=== PATIENT | female | born 1990 | race Caucasian/White ===

== ENCOUNTER 2023-10-31 13:07 | Outpatient (CLI) | payer OTHER ==
--- NOTE | 2023-10-31 13:57 | Sleep Patient Instructions ---
Sleep Center Visit Summary - Patient Visit Information Reason for Visit: Initial consult for evaluation of sleep disordered breathing and other sleep issues. - Patient Instructions Instructions Attached: Sleep Study Home Monitor Additional Instructions: You will be completing a sleep study, either an in-lab polysomnography (PSG) or home sleep study (HST). You will follow-up in the sleep care office after the sleep study is completed to hear the results and talk about therapy, if needed. You will be called by our office staff to schedule this appointment, but you may contact us with any questions. - Clinic Information Contact: [facility] [address] [place] [address] [email or web address] T: [phone]
--- NOTE | 2023-10-31 14:00 | SLEEP CARE CONSULTATION ---
Information from patient questionnaire entered by Nenita Damon. I have reviewed and concur with the information entered by Nenita Damon. This document represents the service I personally performed and the decisions made by me, Lakisha Salamanca ARNP. History of Present Illness Service Date and Time: 10/31/2023 1307 Reason for Visit: New patient Chief Complaint: reports: Unrefreshed sleep, Snoring, Other (Too tired on day basis. I need naps to be able to rest a little more)) Date of Onset: More than 2 years Usual bedtime: 10 PM - stay up to 12-1:30 AM Time it takes to fall asleep: 20-30 minutes if I take Melatonin/Amitriptyline Snores at night: Yes Observed to quit breathing while asleep: No Sleeps alone due to snoring: Yes Number of times waking at night: 1-2 Reasons for waking at night: reports: Snoring, Bathroom, Other (Unknown reason, noise, reflux). denies: Choking, Gasping for air Toss, Turn, or Twitch while sleeping: Yes Recalls having dreams: Yes Usually gets out of bed at: [id number]; weekends 10-11 AM Feels refreshed in the morning: No Morning headache: No Sleepy or fatigued during the day: Yes Ever fallen asleep while driving: Yes (drowsy driving; no accidents) Takes day naps: Yes (almost every day, shortest 3 hours, sleeps a lot on days off) Dreams during day naps: Yes Prior sleep studies: No Additional HPI information: I had the pleasure of seeing ORI SWEENEY today regarding the possibility of her having a sleep disorder. Her current complaints are unrefreshed sleep and snoring. She says she is snoring more according to other sleeping in other rooms . Her significant other had to sleep on couch to sleep because of her loud snoring. Her boyfriend has seen her have a pauses in breathing when sleeping. Her snoring is loudest when she is sleeping supine. She is tired and does not wake up feeing refreshed. She says it takes 1-2 hours to go to sleep unless she takes melatonin and amitriptyline for sleep. - Parasomnia Symptoms Ever been unable to move upon waking from sleep: No Walks in sleep: No Talks in sleep: No Ever acted out dreams in sleep: No Ever felt weak in the knees when startled or emotional: Yes (has not fallen to ground) Bothered by creepy, crawly, restless sensations in legs: No Problems with memory or concentration: Yes (mostly concentration) Subjective Initial [place] Sleepiness Scale score: 16 (in 2022) Past Medical History Past Medical History: reports: Hypertension, Hypothyroidism, Anxiety (and panic attacks), Depression, Other (PCOS; migraines) Social History The patient's occupation is a [employer]iance [employer] ([employer] in the [employer]. Patient is and lives in [place]. Have you smoked in the past 12 months: No Alcohol use: No Caffeine use: Yes Caffeine amount and frequency: 1-2 teas, 3-4 times a week Family History Family history of sleep disordered breathing: Yes Family Hx Sleep Apnea: Mother: Snoring, Sleep apnea - Treated, Father: Snoring, Grandparent: Snoring, Sleep apnea - Untreated Allergies and Home Medications Known drug allergies: Yes (Sulfa drugs, Zyrtec, FE component) Drug allergies reviewed: Yes Home medication list reviewed: Yes Allergy and home medication list: Medications: Cytomel 25 mcg daily Sertraline 100 mg 1.5 daily Propranolol 20 mg 2 x day Metformin 500 mg 2 x day Omeprazole 20 mg daily Zenaida 180 mg daily Premarin 0.625 mg Saturday/ Maxalt 10 mg prn migraines Amitriptyline 25 mg 1 at night melatonin prn sleep Review of Systems Weight gain over past 5 years: 60 or more Weight loss over past 5 years: 0 Cardiovascular: reports: high blood pressure Gastrointestinal: reports: heartburn, diarrhea Neurological: reports: headaches Psychiatric: reports: anxiety, depression Ear/Nose/Throat: reports: nasal congestion, dry mouth/throat, wisdom teeth removed. denies: tonsillectomy Endocrine: reports: thyroid disease, sluggishness (/tired), excessive thirst Musculoskeletal: reports: joint swelling, muscle pain or cramping Immunologic: reports: sneezing (/runny nose), rash, itching, allergies to food or environment (food) Physical Exam Vital signs obtained and entered by: Lakisha Milian NP Blood Pressure: 104/58 Cuff size: wrist (right) Heart Rate: 88 O2 Saturation: 97 Height: 5 ft 4 in Weight: 203 lb 3.2 oz Body Mass Index: 34.9 BMI Classification: Obese Neck circumference: 16 (inches) Mouth and throat: narrow oropharynx Soft palate: long Hard palate: Torus palatinus (small) Uvula: normal Uvula visualization: 25% Mallampati Class III Tongue: enlarged in size with teeth irizarry on lateral edges Tonsils: small Neck: normal w/o lymphadenopathy or thyromegaly Heart: regular rate and rhythm Lungs: clear bilaterally Extremities: no edema or clubbing Impression and Plan 1. Suspected Obstructive Sleep Apnea-Hypopnea Syndrome, as suggested by a history of loud and irregular snoring, observed cessation of breath while asleep, unrefreshed sleep, cognitive impairment, and excessive daytime sleepiness. Narrow oropharynx and obesity are common predisposing factors for obstructive sleep apnea-hypopnea syndrome. I recommend proceeding to polysomnography to confirm the diagnosis and to assess severity. If the patient has significant sleep disordered breathing, a manual CPAP titration study will also be performed to find the optimal treatment pressure. I informed the patient of what the sleep studies involve and after some discussion, obtained agreement to proceed. The pathophysiology of obstructive sleep apnea-hypopnea syndrome was discussed with the patient and health risks of cardiovascular and cerebrovascular disease if not treated. Risks of drowsy driving discussed in detail and patient advised to avoid long distance driving and to jawbone puller at the first sign of drowsiness. Patient agreed to plan. * Schedule polysomnography. * Avoid long distance driving or driving when feeling sleepy. * Avoid alcohol, sedative and muscle relaxant around bedtime. * Attempt to lose weight. * Review instructions provided by trained office staff on how to prepare for the sleep study. * Return for follow-up after sleep study completed. Counseling Topics: Weight loss health impact Plan: PSG/HST Visit Type: In Office Time Spent with Patient (minutes): 32 Provider Statement: I spent 100% of the Face to Face Visit with the patient with greater than 50% spent counseling the patient and coordination of care.
[2023-10-31 14:21] VITALS: BP 104/58; O2SAT 97
== END 2023-10-31 13:08 | disposition home or self-care (01) ==
LOC: SC 13:07
PROVIDERS: ATTEND Nurse Practitioner Family
DX: R06.83 Snoring (principal); G47.8 Other sleep disorders; R06.81 Apnea, not elsewhere classified; G47.10 Hypersomnia, unspecified; R53.83 Other fatigue; F32.A Depression, unspecified; I10 Essential (primary) hypertension; E66.9 Obesity, unspecified; Z68.34 Body mass index [BMI] 34.0-34.9, adult
CPT/HCPCS: 99203; 99212

== ENCOUNTER 2024-01-13 09:32 | Outpatient (CLI) | payer OTHER | END 2024-01-13 09:33 | disposition home or self-care (01) | LOC: SC 09:32 | PROVIDERS: ATTEND Nurse Practitioner Family | DX: R09.02 Hypoxemia (principal) | CPT/HCPCS: 95806 ==

== ENCOUNTER 2024-01-17 15:24 | Outpatient (CLI) | payer OTHER ==
--- NOTE | 2024-01-17 14:38 | Sleep Patient Instructions ---
Sleep Center Visit Summary - Patient Visit Information Reason for Visit: Sleep study follow-up - Patient Instructions Instructions Attached: Sleep Study Additional Instructions: You will be completing an in-lab polysomnography (PSG) or sleep study. You will follow-up in the sleep care office after the sleep study is completed to hear the results and talk about therapy, if needed. You will be called by our office staff to schedule this appointment, but you may contact us with any questions. - Clinic Information Contact: [facility] [address] [place] [address] [email or web address] T: [phone]
--- NOTE | 2024-01-17 14:41 | SLEEP CARE CONSULTATION ---
Information from patient questionnaire entered by Naty Muller. I have reviewed and concur with the information entered by Naty Muller. This document represents the service I personally performed and the decisions made by , Lakisha Salamanca ARNP. History of Present Illness Service Date and Time: 01/17/2024 1420 Accompanied by: Partner (boyfriend) Initial [place] Sleepiness Scale score: 16 (in 2022) Current [place] Sleepiness Scale score: 16 (01/17/24) Additional HPI information: ORI SWEENEY returns for follow up and results of the recently performed home sleep study. The patient was informed of the following findings: No significant sleep disordered breathing with an average AHI of 3.9 and naeem oxygen saturation of 86%. I explained the pathophysiology behind obstructive sleep apnea. Patient does not have sleep apnea and was advised how weight gain could increase the risk of developing sleep apnea in the future. I strongly encouraged the patient to lose weight. Patient has mild snoring. Snoring can be reduced by weight loss. Weight loss is best achieved with diet consult. Patient instructed to contact PCP for referral. Snoring can also be treated with an oral appliance from a dentist. Advised to check insurance coverage. In addition, an ENT evaluation can be do to see if other treatment is indicated. Patient does not drink alcohol. Patient was cautioned about risks of drowsy driving until sleepiness symptoms resolve. Sleep Study - Results Type of Sleep Study: Home sleep study (COMPLETED 01/14/24) Prior sleep studies: No Polysomnography/Home Sleep Study results: Physician Impression: The quality of the study is good. The length of the study is adequate (> 240 minutes). Please also see the tabulated and graphic data. 1. No significant sleep disordered breathing, with an AHI of 3.9/hr and naeem SaO2 of 86%. During the study, the patient had 11 apneas (11 obstructive, 0 central, 0 mixed) and 13 hypopneas. The longest episode lasted 36.0 seconds. The few respiratory events occurred slightly more frequently during supine sleep (supine AHI was 4.7 and non-supine, 2.38). 2. Hypoxemia (ICD-10 R09.02), minimal, with the lowest oxygen saturation of 86 % and 1.2 minutes with SaO2 under 90%. Baseline oxygen saturation was normal (Average oxygen saturation was 95%). Allergies and Home Medications Known drug allergies: Yes (as listed) Drug allergies reviewed: Yes Home medication list reviewed: Yes Allergy and home medication list: Allergies cetirizine [From Zyrtec] Allergy (Verified 01/17/24 14:07) iron Allergy (Verified 01/17/24 14:07) Sulfa (Sulfonamide Antibiotics) Allergy (Verified 01/17/24 14:07) Home Medications modafiniL [Modafinil] See Rx Instructions .ROUTE .COMPLEX 01/17/24 [History] Review of Systems Review of systems same as previous: Yes (NO CHANGE) Physical Exam Vital signs obtained and entered by: NATY Lee MA Blood Pressure: 105/72 (LEFT ARM) Cuff size: regular Heart Rate: 88 O2 Saturation: 98 Height: 5 ft 4 in Weight: 180 lb 9.6 oz Body Mass Index: 30.9 BMI Classification: Obese Impression and Plan 1. Suspected Obstructive Sleep Apnea-Hypopnea Syndrome, as suggested by a history of irregular snoring, unrefreshed sleep, and excessive daytime sleepiness. She completed HST that was borderline and I recommend proceeding to polysomnography to confirm the diagnosis and to assess severity. I obtained agreement to proceed. The pathophysiology of obstructive sleep apnea-hypopnea syndrome was discussed with the patient and health risks of cardiovascular and cerebrovascular disease if not treated. Risks of drowsy driving discussed in detail and patient advised to avoid long distance driving and to kidney puller at the first sign of drowsiness. Patient agreed to plan. 2. Snoring, mild, but no significant sleep disordered breathing. Patient advised that often weight loss will reduce snoring as well as apnea risk. An oral appliance can also be used for snoring. This would require a dental consultation. Patient cautioned not to use other online appliances as can cause bite issues. Patient is advised to check if insurance will cover. An ENT consult can also be helpful to determine if any other treatment is an option. 3. Obesity, unspecified. Currently patients BMI is 30.9. Obesity increases the risk of apnea, CPAP pressure requirements and overall health risks especially cardiovascular and diabetes. Thus patient is advised to lose weight. * Schedule polysomnography +- manual CPAP titration study and return in 1-2 weeks after the study to discuss result and initiate therapy. * Avoid long distance driving or driving when feeling sleepy. * Attempt to lose weight. * Review instructions provided by trained office staff on how to prepare for the sleep study. * Return for follow-up after sleep study completed. Counseling Topics: Weight loss health impact Plan: PSG Visit Type: In Office Time Spent with Patient (minutes): 20 Provider Statement: I spent 100% of the Face to Face Visit with the patient with greater than 50% spent counseling the patient and coordination of care.
[2024-01-17 14:48] VITALS: BP 105/72; O2SAT 98
== END 2024-01-17 15:25 | disposition home or self-care (01) ==
LOC: SC 15:24
PROVIDERS: ATTEND Nurse Practitioner Family
DX: R06.83 Snoring (principal); G47.8 Other sleep disorders; G47.10 Hypersomnia, unspecified; R53.83 Other fatigue; I10 Essential (primary) hypertension; F32.A Depression, unspecified; E66.9 Obesity, unspecified; Z68.30 Body mass index [BMI] 30.0-30.9, adult
CPT/HCPCS: 99212; 99213

== ENCOUNTER 2024-02-08 20:01 | Outpatient (CLI) | payer OTHER | END 2024-02-08 20:02 | disposition home or self-care (01) | LOC: SC 20:01 | PROVIDERS: ATTEND Nurse Practitioner Family | DX: G47.33 Obstructive sleep apnea (adult) (pediatric) (principal) | CPT/HCPCS: 95810 ==

== ENCOUNTER 2024-02-26 09:29 | Outpatient (CLI) | payer OTHER ==
--- NOTE | 2024-02-26 10:03 | Sleep Patient Instructions ---
Sleep Center Visit Summary - Patient Visit Information Reason for Visit: Sleep study follow-up - Patient Instructions Instructions Attached: CPAP Additional Instructions: You are being started on CPAP therapy with pressure setting at 4-15 cmH2O. You will need to call the sleep care office to set up your follow up once you have your CPAP machine to check compliance and response to therapy at that time. You may call the office with any concerns about pressure feeling too low or too much for adjustment, if needed. You should contact DME supplier for any questions or concerns about mask or equipment. Please call office to schedule a follow up appointment in the sleep care office one month after obtaining new device. - Clinic Information Contact: [facility] [address] [place] [address] [email or web address] T: [phone]
--- NOTE | 2024-02-26 10:06 | SLEEP CARE CONSULTATION ---
Information from patient questionnaire entered by Naty Muller. I have reviewed and concur with the information entered by Naty Muller. This document represents the service I personally performed and the decisions made by , Lakisha Salamanca ARNP. History of Present Illness Service Date and Time: 02/26/2024928 Initial [place] Sleepiness Scale score: 16 (in 2022) Current [place] Sleepiness Scale score: 16 (02/26/24) Additional HPI information: ORI SWEENEY returns for follow up and results of the recently performed polysomnography. The sleep study showed mild obstructive sleep apnea with an average AHI of 5.4 and naeem oxygen saturation of 89%. Her supine AHI was 6.2. I explained the pathophysiology behind obstructive sleep apnea. We then spent quite a bit of time discussing different treatment options. For mild obstru ctive sleep apnea, surgery and oral appliance are alternatives to nasal CPAP therapy but in moderate or severe cases, nasal CPAP is the most effective and reliable treatment. Because apnea is primarily in supine position, then positional management therapy could be effective. Methods discussed such as positioning with pillows, using a T-shirt with tennis balls in the back or commercial products that have a pillow format on back to prevent supine sleep. I reviewed the impact of weight changes on sleep apnea and strongly recommended losing weight. After some discussion, the patient opted to go with the nasal CPAP therapy. Nasal autoCPAP set at 4-15 cmH20 will be ordered with rationale explained. A manual titration study will be ordered if unable to find optimal pressure with office adjustments. I explained how CPAP machine works and what to expect when using the machine. Using CPAP every night in order to get used to it was emphasized. Patient advised to put CPAP mask on before getting into bed so as not to fall asleep without CPAP. To assist acclimation to CPAP use, it could also be used for a short time during day while reading or watching TV. The patient was instructed to call the CPAP supplier to discuss any mechanical problem that may occur. If the mask given is uncomfortable or is difficult to keep on through the night even with adjustment, contact the CPAP supplier as many will replace with another mask style if notified before 30 days. If snoring or perceives is not getting enough air or too much air from the machine, notify this office. Patient was cautioned about risks of drowsy driving until sleepiness symptoms resolve. Sleep Study - Results Type of Sleep Study: Polysomnography (COMPLETED 01/14/24 COMPLETED 02/08/24) Prior sleep studies: No Polysomnography/Home Sleep Study results: IMPRESSION: The quality of the study is good. The patient had normal sleep efficiency. The sleep architecture was abnormal for sleep fragmentation and lack of REM sleep. Respiratory monitoring showed mild obstructive sleep apnea-hypopnea (AHI = 5.4) associated with frequent arousals, oxyhemoglobin desaturation and mild hypoxia (naeem oxygen saturation of 89%). The respiratory events occurred almost exclusively during supine sleep (supine AHI = 6.2; non-supine = 2.04). Snore was light to moderate in intensity. There was no significant periodic leg movement of sleep. Cardiac rhythm was normal sinus rhythm without significant arrhythmia. No abnormal behavior (parasomnia) observed during the night. Allergies and Home Medications Known drug allergies: Yes (as listed) Drug allergies reviewed: Yes Home medication list reviewed: Yes (no changes) Allergy and home medication list: Allergies cetirizine [From Zyrtec] Allergy (Verified 02/24/24 09:44) iron Allergy (Verified 02/24/24 09:44) Sulfa (Sulfonamide Antibiotics) Allergy (Verified 02/24/24 09:44) Review of Systems Review of systems same as previous: Yes (NO CHNAGE) Physical Exam Vital signs obtained and entered by: NATY Lee MA Blood Pressure: 104/72 (RIGHT ARM) Cuff size: regular Heart Rate: 86 O2 Saturation: 99 Height: 5 ft 4 in Weight: 176 lb 3.2 oz Body Mass Index: 30.2 BMI Classification: Obese Impression and Plan 1. Obstructive Sleep Apnea-Hypopnea Syndrome, mild, with lowest oxygen saturation of 89%. Obviously this is the cause of the patients symptoms of unrefreshed sleep, and excessive daytime sleepiness. Positive pressure therapy could benefit pre-diabetes, anxiety, depression and migraines. As mentioned above, the patient will be started on nasal autoCPAP therapy with pressure set at 4-15 cmH2O. A manual titration study will be completed if unable to find optimal treatment pressure with office adjustments. Compliance guidelines also reviewed. A copy of compliance guidelines will be given for reference at check out. Because the apnea is more severe supine, I instructed to avoid sleeping supine using pillow positioning until able to start CPAP use. 2. Hypoxemia, mild, with a naeem oxygen saturation of 89% and 0 minutes spent under 90%. The baseline oxygen saturation was normal with an average oxygen saturation of 93%. 3. Obesity, unspecified. Currently patients BMI is 30.2. Obesity increases the risk of apnea, CPAP pressure requirements and overall health risks especially cardiovascular and diabetes. Thus patient is advised to continue to try to lose weight. * Nasal auto CPAP therapy, pressure at 4-15 cm H2O. * Attempt to lose weight. * Avoid alcohol consumption near bedtime. * Avoid supine sleep until using CPAP. * The patient is again cautioned about driving until sleepiness completely resolves. * Return one month after CPAP obtained. I will assess response to therapy and compliance at that time. Counseling Topics: Sleeping position, Weight loss health impact Prescriptions: Auto CPAP Follow up with Sleep Care in: other (compliance followup) Visit Type: In Office Time Spent with Patient (minutes): 21 Provider Statement: I spent 100% of the Face to Face Visit with the patient with greater than 50% spent counseling the patient and coordination of care.
[2024-02-26 10:10] VITALS: BP 104/72; O2SAT 99
== END 2024-02-26 09:30 | disposition home or self-care (01) ==
LOC: SC 09:29
PROVIDERS: ATTEND Nurse Practitioner Family
DX: G47.33 Obstructive sleep apnea (adult) (pediatric) (principal); R09.02 Hypoxemia; E66.9 Obesity, unspecified; Z68.30 Body mass index [BMI] 30.0-30.9, adult
CPT/HCPCS: 99212; 99213

== ENCOUNTER 2024-05-27 13:25 | Outpatient (CLI) | payer OTHER ==
--- NOTE | 2024-05-27 13:49 | Sleep Patient Instructions ---
Sleep Center Visit Summary - Patient Visit Information Reason for Visit: First compliance follow-up - Patient Instructions Additional Instructions: You were here for follow up of CPAP therapy. You will be continued on CPAP therapy with pressure at 6-10 cmH2O. Please let us know if the pressure change is uncomfortable and we can make further adjustments of the pressure. You should follow up with sleep care in 1-2 months. You may contact us sooner for any questions or concerns. - Clinic Information Contact: [facility] [address] [place] [address] [email or web address] T: [phone]
--- NOTE | 2024-05-27 13:54 | SLEEP CARE CONSULTATION ---
Information from patient questionnaire entered by Naty Muller. I have reviewed and concur with the information entered by Naty Muller. This document represents the service I personally performed and the decisions made by , Lakisha Salamanca ARNP. History of Present Illness Service Date and Time: 05/27/2024 132 Previous diagnosis: Mild, Obstructive Sleep Apnea-Hypopnea Syndrome AHI: 5.4 (on 02/08/24) Reason for follow up: first compliance Equipment type: CPAP (RESMED Airsense 11, S/U 03/24/24) Equipment obtained from: Other ([facility]; getting supplies) Mask style: Nasal pillows Mask brand: Resmed (AirFit [id number]) Backup mask available: No (will keep old mask when replaced for back up) Last cushion change: 3 weeks ago Prior sleep studies: No Type of Sleep Study: Polysomnography (COMPLETED 01/14/24 COMPLETED 02/08/24) HPI additional information: ORI SWEENEY was diagnosed to have mild, AHI 5.4, obstructive sleep apnea- hypopnea syndrome and returned today for CPAP therapy first compliance follow- up. Sleep Study - Results Type of Sleep Study: Polysomnography (COMPLETED 01/14/24 COMPLETED 02/08/24) Prior sleep studies: No CPAP Compliance Data - Data Reviewed with Patient Average duration of nightly device use: 7 HRS 25 MINS Compliance rate %: 90 (03/24/24-04/22/24; days used) Current pressure setting (cmH2O): 4-15 (median 6.2, avg 9.6, max 10.9) Average residual AHI: 0.7 Central apnea: 0.2 Obstructive apnea: 0.4 Hypopnea: 0 Average large leak: 0.5 L/min Compliance data discussion: She used a travel CPAP when not using her regular CPAP. Subjective Missed days of use due to: reports: travel Patient concerns: reports: aerophagia (only with her travel CPAP), dry mouth, nose, throat (dry nose). denies: mask discomfort, air blowing in eyes, mask leak noise, condensation in mask/hose, nasal congestion, epistaxis Observed to snore while using device: No Current pressure setting perceived as: comfortable On therapy, patient: reports: sleeping better, awakening more refreshed, being more awake and alert during the day, more rested overall, other (not taking naps in late afternoon). denies: drowsiness while driving Initial [place] Sleepiness Scale score: 16 (in 2022) Current [place] Sleepiness Scale score: 16 (05/27/24- just changed time zones in last 2 wks) Allergies and Home Medications Known drug allergies: Yes (as listed) Drug allergies reviewed: Yes Home medication list reviewed: Yes (no changes) Allergy and home medication list: Allergies cetirizine [From Zyrtec] Allergy (Verified 05/25/24 11:18) iron Allergy (Verified 05/25/24 11:18) Sulfa (Sulfonamide Antibiotics) Allergy (Verified 05/25/24 11:18) Review of Systems Review of systems same as previous: Yes (NO CHANGE) Physical Exam Vital signs obtained and entered by: NATY Lee MA Blood Pressure: 112/74 (LEFT ARM ARM) Cuff size: regular Heart Rate: 99 O2 Saturation: 97 Height: 5 ft 4 in Weight: 181 lb 3.2 oz Body Mass Index: 31.1 BMI Classification: Obese Impression and Plan 1. Obstructive Sleep Apnea-Hypopnea Syndrome, mild, with good treatment compliance and good apnea control. On CPAP therapy, the patient has better sleep quality and is more rested overall. She states she is definitely feeling like she has more energy during the day and not taking naps in the late afternoon after work. She just changed time zone so she is a bit tired from some jet lag. She feels like the pressure might be a little low when she first puts the mask on but otherwise is comfortable. She has significant improvement of her sleep apnea. The patients pressure will be changed to autoCPAP 6-10 cmH20 to reflect pressure being used. Patient advised to contact me if pressure change is uncomfortable so that it can be adjusted. Goals for apnea control discussed. Patient's apnea severity and rationale for treatment to reduce apnea, improve sleep quality and reduce cardiovascular and cerebrovascular events was reviewed. I also reviewed the benefit of consistent device use of CPAP for pre-diabetes, depression/anxiety, migraines. 2. Obesity, unspecified. Currently patients BMI is 31.1. Obesity increases the risk of apnea, CPAP pressure requirements and overall health risks especially cardiovascular and diabetes. Thus patient is advised to lose weight. * Change auto CPAP pressure to 6-10 cmH2O * turn off ramp starting pressure * Notify me if snoring with mask or feeling that the pressure is too much or too little * Attempt to lose weight * Call this office if any problems using CPAP * Return for follow up in 1-2 months, or sooner if concerns arise Adjust device pressure to (cmH2O): 6-10 Counseling Topics: Spare mask, Weight loss health impact Follow up with Sleep Care in: 1-2 months Visit Type: In Office Time Spent with Patient (minutes): 21 Provider Statement: I spent 100% of the Face to Face Visit with the patient with greater than 50% spent counseling the patient and coordination of care.
[2024-05-27 13:56] VITALS: BP 112/74; O2SAT 97
== END 2024-05-27 13:26 | disposition home or self-care (01) ==
LOC: SC 13:25
PROVIDERS: ATTEND Nurse Practitioner Family
DX: G47.33 Obstructive sleep apnea (adult) (pediatric) (principal); E66.9 Obesity, unspecified; Z68.31 Body mass index [BMI] 31.0-31.9, adult
CPT/HCPCS: 99212; 99213

== ENCOUNTER 2024-07-24 13:38 | Outpatient (CLI) | payer OTHER ==
--- NOTE | 2024-07-24 14:06 | Sleep Patient Instructions ---
Sleep Center Visit Summary - Patient Visit Information Reason for Visit: 2-month follow-up for PAP therapy - Patient Instructions Additional Instructions: You were here for follow up of CPAP therapy. You will be continued on CPAP therapy with pressure at 5-10 cmH2O. A prescription for the deployment kit and mask refitting will be sent to your CPAP supplier. You should follow up with sleep care in 6 months. You may contact us sooner for any questions or concerns. - Clinic Information Contact: [facility] [address] [place] [address] [email or web address] T: [phone]
--- NOTE | 2024-07-24 14:09 | SLEEP CARE CONSULTATION ---
Information from patient questionnaire entered by Nenita Damon. I have reviewed and concur with the information entered by Nenita Damon. This document represents the service I personally performed and the decisions made by , Lakisha Salamanca ARNP. History of Present Illness Service Date and Time: 07/24/2024 1338 Previous diagnosis: Mild, Obstructive Sleep Apnea-Hypopnea Syndrome AHI: 5.4 (on 02/08/24) Reason for follow up: other (2-Month F/U) Equipment type: CPAP (RESMED Airsense 11, S/U 03/24/24) Equipment obtained from: Other ([facility]; getting supplies) Mask style: Nasal pillows Backup mask available: Yes Last cushion change: 2 week Prior sleep studies: No Type of Sleep Study: Polysomnography (COMPLETED 01/14/24 COMPLETED 02/08/24) HPI additional information: ORI SWEENEY was diagnosed to have mild, AHI 5.4, obstructive sleep apnea- hypopnea syndrome and returned today for CPAP therapy two month after pressure change follow-up. Sleep Study - Results Type of Sleep Study: Polysomnography (COMPLETED 01/14/24 COMPLETED 02/08/24) Prior sleep studies: No CPAP Compliance Data - Data Reviewed with Patient Average duration of nightly device use: 7 h 28 min Compliance rate %: 70 (44/60 days used) Current pressure setting (cmH2O): 5-10 Average residual AHI: 0.5 Central apnea: 0.1 Obstructive apnea: 0.3 Hypopnea: 0 Average large leak: 0.7 L/min Compliance data discussion: She uses her travel CPAP when traveling or away from home. Subjective Missed days of use due to: reports: travel (using travel CPAP) Patient concerns: reports: other (Pain on bridge of nose). denies: aerophagia, mask discomfort, air blowing in eyes, mask leak noise, condensation in mask/hose, nasal congestion, dry mouth, nose, throat, epistaxis Observed to snore while using device: No Current pressure setting perceived as: comfortable On therapy, patient: reports: sleeping better, awakening more refreshed, being more awake and alert during the day, more rested overall. denies: drowsiness while driving Initial [place] Sleepiness Scale score: 16 (in 2022) Current [place] Sleepiness Scale score: 12 (07/24/24) Allergies and Home Medications Known drug allergies: Yes (as listed) Drug allergies reviewed: Yes Home medication list reviewed: Yes (no changes) Allergy and home medication list: Allergies cetirizine [From Zyrtec] Allergy (Verified 05/25/24 11:18) iron Allergy (Verified 05/25/24 11:18) Sulfa (Sulfonamide Antibiotics) Allergy (Verified 05/25/24 11:18) Review of Systems Review of systems same as previous: Yes (no changes) Physical Exam Vital signs obtained and entered by: Lakisha Milian NP Blood Pressure: 111/81 Cuff size: long (left arm) Heart Rate: 98 O2 Saturation: 100 Height: 5 ft 4 in Weight: 172 lb 9.6 oz Body Mass Index: 29.6 BMI Classification: Overweight Impression and Plan 1. Obstructive Sleep Apnea-Hypopnea Syndrome, mild, with good treatment compliance and good apnea control. On CPAP therapy, the patient has better sleep quality and is more rested overall. She has significant improvement of her sleep apnea and is comfortable with CPAP use. She is get a little soreness on the bridge of her nose from the nasal pillows mask. She would like to try a different style. 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 I will write a prescription for the deployment kit for 6 months and at the mask refitting to it as well. We will follow-up with her when she comes back in about 6 months or so. Patient's apnea severity and rationale for treatment to reduce apnea, improve sleep quality and reduce cardiovascular and cerebrovascular events was reviewed. I also reviewed the benefit of consistent device use of CPAP for pre- diabetes, depression/anxiety, migraines. 2. Overweight, unspecified. Currently patients BMI is 29.6. Obesity increases the risk of apnea, CPAP pressure requirements and overall health risks especially cardiovascular and diabetes. Thus patient is advised to lose weight. * Continue auto CPAP pressure at 5-10 cmH2O * Deployment kit for 6 months * Mask refitting * Notify me if snoring with mask or feeling that the pressure is too much or too little * Attempt to lose weight * Call this office if any problems using CPAP * Return for follow up in 6 months, or sooner if concerns arise Counseling Topics: Spare mask, Weight loss health impact Follow up with Sleep Care in: 6 months Visit Type: In Office Time Spent with Patient (minutes): 20 Provider Statement: I spent 100% of the Face to Face Visit with the patient with greater than 50% spent counseling the patient and coordination of care.
[2024-07-24 14:11] VITALS: BP 111/81; O2SAT 100
== END 2024-07-24 13:39 | disposition home or self-care (01) ==
LOC: SC 13:38
PROVIDERS: ATTEND Nurse Practitioner Family
DX: G47.33 Obstructive sleep apnea (adult) (pediatric) (principal); E66.3 Overweight; Z68.29 Body mass index [BMI] 29.0-29.9, adult
CPT/HCPCS: 99212; 99213